=== PATIENT | male | born 1945 | race Caucasian/White ===

== ENCOUNTER 2016-08-11 14:34 | Inpatient (IN) | payer OTHER ==
[2016-08-11] MEDS ORDERED: HEMOQUE TEST 1 EACH EACH ONE (14:37)
[2016-08-11] MEDS ORDERED: SODIUM CHLORIDE 1,000 ML IV ONE (14:40)
--- NOTE | 2016-08-11 14:43 | PDOC ---
History of Present Illness - General History Source: Patient Exam Limitations: No Limitations - History of Present Illness Initial Comments: 08/11/16 18:56 Patient is a 70 year old male with unknown significant past medical history who presents to the ED via EMS with [employer] s/p witnessed seizure activity. As per EMS the patient was in [employer] as patient was ordering, he started to sway and fell hitting his head,t hen started to have the seizure like acivity. Pt also noted to have large lac onhis head. Patient presented combative and postictal to the ED. Patient was confused on presentation and fighting but was able to answer questions upon arrival. Patient denies any complaints upon arrival - but does not remember anything from earlier today - no cp, palpitations, headache, dizziness, numbness/ weakness. Patient denies any ETOH abuse, any drug use. Patient denies any history of seizures in the past. <Emely Sylvester - Last Filed: 08/11/16 18:56> <Juan Miguel Barajas - Last Filed: 08/11/16 19:33> - General Chief Complaint: Seizure Stated Complaint: SEIZURE Time Seen by Provider: 08/11/16 14:39 Past History <Emely Sylvester - Last Filed: 08/11/16 18:56> <Juan Miguel Barajas - Last Filed: 08/11/16 19:33> - Past Medical History Allergies/Adverse Reactions: Allergies Allergy/AdvReac Type Severity Reaction Status Date / Time No Known Allergies Allergy Verified 08/11/16 19:13 Review of Systems - Review of Systems Able to Perform ROS?: Yes Comments:: 08/11/16 18:57 Constitutional - no reported Fever, Chills, weakness, HEENT: no reported vision changes, sore throat Respiratory: no reported cough, sob, hemoptysis Cardiac: no reported chest pain, palpitations, light headedness, leg swelling Abd/GI: no reported abd pain, nausea, vomiting, blood per rectum, melena, diarrhea : no reported dysuria, frequency, discharge Musculskelatal - no reported back pain, joint swelling skin - +laceration to back of the scalp no reported bruising, erythema, rash neurological: no reported headache, numbness, focal weakness, tingling, ataxia, weakness hematologic: no reported anemia, easy bruising, easy bleeding <Emely Sylvester - Last Filed: 08/11/16 18:56> *Physical Exam - Vital Signs Last Vital Signs Temp Pulse Resp BP Pulse Ox 97 H 18 144/78 198 H 08/11/16 17:21 08/11/16 17:21 08/11/16 17:21 08/11/16 17:21 - Physical Exam Comments: 08/11/16 18:58 exam documented reflects after patients more alert GENERAL: The patient is awake, alert, and fully oriented, Nontoxic - in no acute distress. HEAD: Normocephalic, 6cm laceration to posterior scalp with hematoma, no stepoffs EYES: extraocular movements intact, sclera anicteric, conjunctiva clear. ENT: Normal voice, Moist mucous membranes. NECK: Normal range of motion, supple, no midline cervical tenderness BACK: No focal thoracic/lumbar tenderness LUNGS: Breath sounds equal, clear to auscultation bilaterally. No wheezes, no rhonchi, no rales. HEART: Regular rate and rhythm, normal S1 and S2 without murmur, rub or gallop. ABDOMEN: Soft, nontender, normoactive bowel sounds. No guarding, no rebound. . No CVA tenderness EXTREMITIES: Normal range of motion, no edema. No clubbing or cyanosis. No cords, erythema, or tenderness. NEUROLOGICAL: No facial assymetry, Normal speech, mofing all 4 extremities spontaneously and symmetrially PSYCH: Normal mood, normal affect. SKIN: Warm, Dry, normal turgor, <Emely Syvlester - Last Filed: 08/11/16 18:56> Procedures - Consent Consent obtained: Verbal - Laceration/Wound Repair Left Posterior Head Wound Length: 5.0 to 7.5 cm Wound Explored: clean Wound's Depth, Shape: superficial, linear, stellate Irrigated w/ Saline: Yes Anesthesia: 1% Lidocaine Amount of Anesthetic (ccs): 4 Wound Debrided: minimal Wound Repaired With: Sadi Number of Sutures: 9 Layer Closure: No <Juan Miguel Barajas - Last Filed: 08/11/16 19:33> Heart Score/ECG Review - ECG Impressions Comment:: 08/11/16 15:36 Twelve-lead EKG was performed and reviewed by me. There is normal sinus rhythm with a rate of 127 Right bundle-branch block Q waves in lead 3 T wave inversion in the anterior leads <Juan Miguel Barajas - Last Filed: 08/11/16 19:33> ED Treatment Course - LABORATORY CBC & Chemistry Diagram: 08/11/16 14:00 08/11/16 14:00 - ADDITIONAL ORDERS Additional order review: Laboratory Results 08/11/16 08/11/16 08/11/16 14:48 14:48 14:39 INR Sodium Potassium Chloride Carbon Dioxide Anion Gap BUN Creatinine Creat Clearance w eGFR POC Glucometer 98.08865 Random Glucose Calcium Total Bilirubin AST ALT Alkaline Phosphatase Creatine Kinase Creatine Kinase Index CK-MB (CK-2) CK-MB (CK-2) Rel Index Troponin I Total Protein Albumin TSH Alcohol, Quantitative < 5.0 Acetone, Qual Negative 08/11/16 08/11/16 08/11/16 14:00 14:00 14:00 INR 1.01 Sodium Potassium Chloride Carbon Dioxide Anion Gap BUN Creatinine Creat Clearance w eGFR POC Glucometer Random Glucose Calcium Total Bilirubin AST ALT Alkaline Phosphatase Creatine Kinase 541 H Creatine Kinase Index 2.1 CK-MB (CK-2) 11.489 H CK-MB (CK-2) Rel Index Cancelled Troponin I < 0.02 Total Protein Albumin TSH 2.05 Alcohol, Quantitative Acetone, Qual 08/11/16 14:00 INR Sodium 140 Potassium 4.0 Chloride 99 Carbon Dioxide 21 Anion Gap 20 H BUN 24 H Creatinine 1.5 H Creat Clearance w eGFR 46.00 POC Glucometer Random Glucose 99 Calcium 8.9 Total Bilirubin 0.8 AST 27 ALT 21 Alkaline Phosphatase 95 Creatine Kinase Creatine Kinase Index CK-MB (CK-2) CK-MB (CK-2) Rel Index Troponin I Total Protein 7.7 Albumin 4.4 TSH Alcohol, Quantitative Acetone, Qual 08/11/16 08/11/16 14:39 14:00 RBC 5.58 MCV 90.8 MCHC 32.5 RDW 14.1 MPV 7.7 Neutrophils % 61.7 Lymphocytes % 17.5 Monocytes % 14.7 H Eosinophils % 4.3 Basophils % 1.8 POC Glucometer 98.44362 - Medications Given in the ED: ED Medications Discontinued Medications Generic Name Dose Route Start Last Admin Trade Name Freq PRN Reason Stop Dose Admin Diphtheria/Tetanus/Acell Pertussis 0.5 ml 08/11/16 16:13 08/11/16 16:41 Adacel Adolescent/Adult - IM 08/11/16 16:14 0.5 ml .ONCE ONE Administration Sodium Chloride 1,000 mls @ 1,000 mls/hr 08/11/16 14:40 08/11/16 15:24 Normal Saline - IV 08/11/16 15:39 1,000 mls/hr .Q1H ONE Administration <Emely Sylvester - Last Filed: 08/11/16 18:56> - LABORATORY CBC & Chemistry Diagram: 08/11/16 14:00 08/11/16 14:00 - RADIOLOGY Radiology Studies Ordered: Category Date Time Status CERVICAL SPINE CT W/O CONTR [CT] Stat CT Scan 08/11/16 14:[address] WITHOUT CONTRAST [CT] Stat CT Scan 08/11/16 14:40 Ordered CHEST X-RAY PORTABLE* [RAD] Stat Radiology 08/11/16 14:40 Ordered <Juan Miguel Barajas - Last Filed: 08/11/16 19:33> Medical Decision Making - Medical Decision Making 08/11/16 14:43 08/11/16 14:44 70y M [place] pmhx presents with witnessed seizure activity lasting a few minutes while ordering at [facility] [place] - pt was combative/post ictal whien EMS arrived. upon arrival pt was still cmobative and fighting/pulling but pt answering qeustsions and is relatively coherent, although needs repetitive guidance. ?etoh withdrawal ?new seziures will ck ct head to r/o ICH/SAH will ck labs to r/o metabolic dernagements will ua, cxr to r/o infection pt placed on cardiac tmonitor pt mntoed tachy to 127 - likely due to the pts recent seziure - will give fluids will reassess A portion of this note was documented by scribe services under my direction. I have reviewed the details of the note, within reason, and agree with the documentation with the following case summary and management plan written by me 08/11/16 14:52 Per PD, the [facility] [place] network architect manager states the pt was ordering, then started to sway and fell, then seizure like activity began pt has large laceration on posterior scalp - currently ao x 3 more awake, cooperative, joking around ?syncope and seizure secondary to head trauma? 08/11/16 16:39 case d/w dr. dejesus agreed with admission for further management observation in telemetry Case discussed in detail with admitting physician including history, physical exam and ancillary studies. Admitting physician has assumed care for the patient, will follow all pending diagnostics and will complete the evaluation and treatment. 08/11/16 19:[address] shows no acute disease, howver there is a enlargement of R submandibular gland relative to left - will have pt fu with this as outpatient. i discussed with patient to let him know. CT results given to patient to fu. <Juan Miguel Barajas - Last Filed: 08/11/16 19:33> *DC/Admit/Observation/Transfer - Attestations Scribe Attestion: 08/11/16 18:57 Documentation prepared by SIDDHARTHA Wiley, acting as medical radiation therapist for Juan Miguel Barajas MD. <Emely Sylvester - Last Filed: 08/11/16 18:56> - Discharge Dispostion Admit: Yes <Juan Miguel Barajas - Last Filed: 08/11/16 19:33> Diagnosis at time of Disposition: Seizure Syncope Qualifiers: Syncope type: unspecified Qualified Code(s): R55 - Syncope and collapse
[2016-08-11 14:54] VITALS: BMI 29.0
[2016-08-11 15:10] LABS: BASOPHIL 1.8 % (0-2.0); EOSINOPHIL 4.3 % (0-4.5); MCH 29.5 pg (25.7-33.7); MCHC 32.5 g/dl (32.0-35.9); MEAN CELL VOLUME 90.8 fl (80-96); MEAN PLT VOLUME 7.7 fl (7.5-11.1); NEUTROPHILS 61.7 % (42.8-82.8); PLATELET COUNT 384 K/MM3 (134-434); RDW 14.1 % (11.9-15.9); WHITE BLOOD COUNT 11.4 K/mm3 (4.0-10.0)
[2016-08-11 15:33] LABS: INR 1.01 (0.82-1.09); PROTHROMBIN TIME (PATIENT) 11.1 SEC (9.98-11.88)
[2016-08-11 15:41] LABS: TROPONIN I < 0.02 ng/ml (0.00-0.05)
[2016-08-11 15:44] LABS: ALBUMIN 4.4 g/dl (3.4-5.0); CALCIUM 8.9 mg/dL (8.5-10.1); CREATININE 1.5 mg/dL (0.7-1.3)
[2016-08-11 15:45] LABS: BILIRUBIN,TOTAL 0.8 mg/dL (0.2-1.0); TOT PROT 7.7 g/dl (6.4-8.2)
[2016-08-11 15:51] LABS: THYROID STIMULATING HORMONE 2.05 uIU/ml (0.358-3.74)
[2016-08-11] MEDS ORDERED: DIPHTH,PERTUSS(ACELL),TET VAC 0.5 ML VIAL IM ONE (16:13)
[2016-08-11] MEDS ORDERED: BACITRACIN 0.9 GM PACKET ONE (16:36)
[2016-08-11] MEDS ORDERED: SODIUM CHLORIDE 1,000 ML IV SCH (17:30)
--- NOTE | 2016-08-11 17:41 | HP ---
CHIEF COMPLAINT: Loss of consciousness. PCP: Dr Kevin Pace in [facility] HISTORY OF PRESENT ILLNESS: This is a 70 year old male with no PMH who was brought via EMS s/p seizure and LOC. He states that was in [employer] trying to order when he suddenly lost consciousness, fell on the ground, hit his head and had seizure. He woke up in the hospital confused and oriented only to person. The pt denies feeling different before the incident. He didn't have aura, urinate, defecate or bit his tongue. The pt reports that he had one episode of LOC 4 years ago when he was admitted to [facility] but no diagnosis was made. Last time he was seen by his PCP was last year and he states that he doesn't have any PMH. Doesn't take any prescription medications. ER course was notable for: (1)CT head (2)CXR (3)Utox, IVF PAST MEDICAL HISTORY: None PAST SURGICAL HISTORY: None Social History: Smoking:Denies, never smoker Alcohol:Denies Drugs: Denies Family History: Mother and Father bc of natural causes. Allergies No Known Allergies Allergy (Verified 08/11/16 14:44) HOME MEDICATIONS: OTC vitamins REVIEW OF SYSTEMS CONSTITUTIONAL: Absent: fever, chills, malaise, loss of appetite, weight change HEENT: Absent: rhinorrhea, nasal congestion, throat pain, throat swelling, difficulty swallowing, ear pain, eye pain, visual changes CARDIOVASCULAR: Absent: chest pain, palpitations, lightheadedness, peripheral edema RESPIRATORY: Absent: cough, shortness of breath, dyspnea with exertion, orthopnea, wheezing, GASTROINTESTINAL: Absent: abdominal pain, nausea, vomiting, diarrhea, constipation, melena, GENITOURINARY: Absent: dysuria, frequency, urgency, hesitancy, hematuria, flank pain, MUSCULOSKELETAL: Absent: myalgia, arthralgia, joint swelling, back pain, neck pain SKIN: Absent: rash, itching, pallor ENDOCRINE: Absent: unexplained weight gain, unexplained weight loss, NEUROLOGIC: seizure, LOC, dizziness Absent: headache, focal weakness or paresthesias, unsteady gait, mental status changes, bladder or bowel incontinence PSYCHIATRIC: Confused Absent: anxiety, depression PHYSICAL EXAMINATION Vital Signs - 24 hr 01/26/17 01/26/17 01/26/17 14:36 15:24 15:34 Pulse Rate 127 H Pulse Rate [ 103 H Apical] Respiratory 18 20 Rate Blood Pressure 141/109 Blood Pressure 125/74 [Right Arm] O2 Sat by Pulse 100 93 L 97 Oximetry (%) 08/11/16 08/11/16 17:11 17:21 Pulse Rate Pulse Rate [ 100 H 97 H Apical] Respiratory 20 18 Rate Blood Pressure Blood Pressure 144/78 144/78 [Right Arm] O2 Sat by Pulse 100 198 H Oximetry (%) GENERAL: Awake, AAOx1, in no acute distress. HEAD:5 cm wound on posterior scalp, 8 stitches applied. EYES: Pupils equal, round and reactive to light, extraocular movements intact, sclera anicteric, conjunctiva clear. No lid lag. EARS, NOSE, THROAT: Ears normal, nares patent, oropharynx clear without exudates. Moist mucous membranes. NECK: Normal range of motion, supple without lymphadenopathy, no JVD, or masses. LUNGS: Breath sounds equal, clear to auscultation bilaterally. No wheezes, and no crackles. No accessory muscle use. HEART: Regular rate and rhythm, normal S1 and S2 without murmur, rub or gallop. ABDOMEN: Soft, nontender, not distended, normoactive bowel sounds, no guarding, no rebound, naval hernia. No hepatomegaly or splenomegaly. MUSCULOSKELETAL: Normal range of motion at all joints. No bony deformities or tenderness. No CVA tenderness. UPPER EXTREMITIES: 2+ pulses, warm, well-perfused. No cyanosis. No clubbing. No peripheral edema. LOWER EXTREMITIES: 2+ pulses, warm, well-perfused. No calf tenderness. No peripheral edema. NEUROLOGICAL: Cranial nerves II-XII intact. Normal speech. Gait not observed, the pt felt dizziness when in sitting position, Babinski neg. B/L, DTR in LE and UE intact.. PSYCHIATRIC: Cooperative. Good eye contact. Appropriate mood and affect. SKIN: Warm, dry, normal turgor, no rashes. Laboratory Results - last 24 hr 08/11/16 08/11/16 08/11/16 14:00 14:00 14:00 WBC 11.4 H RBC 5.58 Hgb 16.5 Hct 50.7 H MCV 90.8 MCHC 32.5 RDW 14.1 Plt Count 384 MPV 7.7 Neutrophils % 61.7 Lymphocytes % 17.5 Monocytes % 14.7 H Eosinophils % 4.3 Basophils % 1.8 INR 1.01 Sodium 140 Potassium 4.0 Chloride 99 Carbon Dioxide 21 Anion Gap 20 H BUN 24 H Creatinine 1.5 H Creat Clearance w eGFR 46.00 POC Glucometer Random Glucose 99 Calcium 8.9 Total Bilirubin 0.8 AST 27 ALT 21 Alkaline Phosphatase 95 Creatine Kinase Creatine Kinase Index CK-MB (CK-2) CK-MB (CK-2) Rel Index Troponin I Total Protein 7.7 Albumin 4.4 TSH Acetone, Qual 08/11/16 08/11/16 08/11/16 14:00 14:00 14:39 WBC RBC Hgb Hct MCV MCHC RDW Plt Count MPV Neutrophils % Lymphocytes % Monocytes % Eosinophils % Basophils % INR Sodium Potassium Chloride Carbon Dioxide Anion Gap BUN Creatinine Creat Clearance w eGFR POC Glucometer 98.28728 Random Glucose Calcium Total Bilirubin AST ALT Alkaline Phosphatase Creatine Kinase 541 H Creatine Kinase Index 2.1 CK-MB (CK-2) 11.489 H CK-MB (CK-2) Rel Index Cancelled Troponin I < 0.02 Total Protein Albumin TSH 2.05 Acetone, Qual 08/11/16 14:48 WBC RBC Hgb Hct MCV MCHC RDW Plt Count MPV Neutrophils % Lymphocytes % Monocytes % Eosinophils % Basophils % INR Sodium Potassium Chloride Carbon Dioxide Anion Gap BUN Creatinine Creat Clearance w eGFR POC Glucometer Random Glucose Calcium Total Bilirubin AST ALT Alkaline Phosphatase Creatine Kinase Creatine Kinase Index CK-MB (CK-2) CK-MB (CK-2) Rel Index Troponin I Total Protein Albumin TSH Acetone, Qual Negative CXR; no infiltrates, no acute pathology CT head:no acute pathology, fracture, enlarged right submandibular gland C-Spine CT:no acute pathology ASSESSMENT/PLAN: This is a 70 year old male with no PMH who was brought via EMS s/p seizure and LOC. He states that was in [employer] trying to order when he suddenly lost consciousness, fell on the ground, hit his head and had seizure. He woke up in the hospital confused and oriented only to person. The pt denies feeling different before the incident. He didn't have aura, urinate, defecate or bit his tongue. He was placed on observation in telemetry s/p seizure. S/p seizure and fall: -possibly due to hypoglycemia, (Random Glu 99) -CT head-no acute pathology, -sutures applied (8) -cardiac monitoring in telemetry -set of troponins x2 -Utox pending -Alcohol level neg -acetone neg -UA pending -NS at rate 83 ml/hr -EEG ordered -too late for prolactin TERRENCE; -possibly due to dehydration, prerenal -Cr 1.5, BUN 24 -avoid nephrotoxic substances -continue NS DVT PPX; -SCDs F/E/N: NS/No changes/Regular Problem List - Problem (1) Seizure Code(s): R56.9 - UNSPECIFIED CONVULSIONS (2) Syncope Code(s): R55 - SYNCOPE AND COLLAPSE Qualifiers: Syncope type: unspecified Qualified Code(s): R55 - Syncope and collapse Visit type - Emergency Visit Emergency Visit: Yes ED Registration Date: 08/11/16 Care time: The patient presented to the Emergency Department on the above date and was hospitalized for further evaluation of their emergent condition. - New Patient This patient is new to me today: Yes Date on this admission: 08/11/16 - Critical Care Critical Care patient: No
--- NOTE | 2016-08-11 18:05 | PN ---
Teaching Attending Note Name of Resident: Wandy Blanca ATTENDING PHYSICIAN STATEMENT I saw and evaluated the patient. I reviewed the resident's note and discussed the case with the resident. I agree with the resident's findings and plan as documented. SUBJECTIVE: This is a 70-year-old man with a history of syncope who was brought in to the ER by EMS after losing consciousness at [facility]. He was ordering, fell to the floor, hit his head, and had seizure activity. He woke up in the ER confused. He was not incontinent and did not bite his tongue. OBJECTIVE: Vital Signs Period Temp Pulse Resp BP Sys/Carbajal Pulse Ox Last 24 Hr 97-127 18-20 125-144/74-109 93-198 HEART: S1 S2, RRR LUNGS: Clear ABDOMEN: Soft, non-tender, non-distended, normal BS EXTREMITIES: No edema NEUROLOGICAL: Alert, oriented, non-focal ASSESSMENT AND PLAN: 1. Seizure - Monitor on telemetry - EEG 2. Possible acute kidney injury, possible stage 3 CKD - IV fluid - Monitor BUN, creatinine 3. Scalp laceration - Sadi placed in ER
[2016-08-11 22:48] LABS: URINE APPEARANCE CLEAR; URINE BILIRUBIN NEGATIVE (NEGATIVE); URINE BLOOD NEGATIVE (NEGATIVE); URINE COLOR YELLOW; URINE GLUCOSE (UA) NEGATIVE (NEGATIVE); URINE KETONE TRACE (NEGATIVE); URINE LEUK ESTERASE NEGATIVE (NEGATIVE); URINE NITRITE NEGATIVE (NEGATIVE); URINE PROTEIN NEGATIVE (NEGATIVE); URINE UROBILINOGEN NEGATIVE E.U./dl (0.2-1.0)
[2016-08-11 23:10] LABS: URINE MARIJUANA THC NEGATIVE ng/ml (CUTOFF=50)
--- NOTE | 2016-08-11 23:35 | EKG ---
Test Reason : Blood Pressure : / mmHG Vent. Rate : 127 BPM Atrial Rate : 127 BPM P-R Int : 130 ms QRS Dur : 136 ms QT Int : 362 ms P-R-T Axes : 029 -14 043 degrees QTc Int : 526 ms POOR DATA QUALITY, INTERPRETATION MAY BE ADVERSELY AFFECTED SINUS TACHYCARDIA RIGHT BUNDLE BRANCH BLOCK INFERIOR INFARCT , AGE UNDETERMINED ABNORMAL ECG NO PREVIOUS ECGS AVAILABLE Confirmed by VAHID POE MD ([id number]) on 08/11/2016 11:34:32 PM Referred By: Confirmed By:VAHID POE MD
[2016-08-12 08:12] LABS: MCH 30.2 pg (25.7-33.7); MCHC 33.5 g/dl (32.0-35.9); MEAN CELL VOLUME 90.3 fl (80-96); MEAN PLT VOLUME 7.2 fl (7.5-11.1); PLATELET COUNT 226 K/MM3 (134-434); RDW 13.5 % (11.9-15.9); WHITE BLOOD COUNT 7.7 K/mm3 (4.0-10.0)
[2016-08-12 09:00] LABS: CALCIUM 7.4 mg/dL (8.5-10.1); CREATININE 1.1 mg/dL (0.7-1.3)
[2016-08-12 09:06] LABS: TROPONIN I 0.05 ng/ml (0.00-0.05)
--- NOTE | 2016-08-12 11:31 | EKG ---
Test Reason : Blood Pressure : / mmHG Vent. Rate : 088 BPM Atrial Rate : 088 BPM P-R Int : 182 ms QRS Dur : 130 ms QT Int : 390 ms P-R-T Axes : 048 -09 030 degrees QTc Int : 471 ms NORMAL SINUS RHYTHM RIGHT BUNDLE BRANCH BLOCK INFERIOR INFARCT (CITED ON OR BEFORE 11-AUG-2016) ABNORMAL ECG WHEN COMPARED WITH ECG OF 11-AUG-2016 14:37, NO SIGNIFICANT CHANGE WAS FOUND Confirmed by DUDLEY MELÉNDEZ MD ([id number]) on 08/12/2016 11:31:33 AM Referred By: CAMELIA SCOTT Confirmed By:DUDLEY MELÉNDEZ MD
--- NOTE | 2016-08-12 15:07 | PN ---
Physical Exam: SUBJECTIVE: Patient seen and examined. The pt is complaining of feeling dizzy and lightheaded. He denies headache, vision problems, paresthesias, numbness, LOC in the hospital, N/V, diarrhea, fever, chills, chest pain and palpitations. He states that he doesn't remember what happened and if he had seizures. OBJECTIVE: Vital Signs Period Temp Pulse Resp BP Sys/Carbajal Pulse Ox Last 24 Hr 97.6 F-98.4 F 76-98 18-20 117-148/68-111 96-198 GENERAL: The patient is awake, alert, and fully oriented, in no acute distress. HEAD: 5 cm laceration in the back of the scalp, not bleeding, sutures applied EYES: PERRL, sclera anicteric, conjunctiva clear. No ptosis. ENT: Ears normal, nares patent, oropharynx clear without exudates, moist mucous membranes. NECK: Trachea midline, full range of motion, supple. LUNGS: Breath sounds equal, clear to auscultation bilaterally, no wheezes, no crackles, no accessory muscle use. HEART: Regular rate and rhythm, S1, S2 without murmur, rub or gallop. ABDOMEN: Soft, nontender, nondistended, normoactive bowel sounds, no guarding, no rebound, no hepatosplenomegaly, no masses. EXTREMITIES: warm, well-perfused, no edema. NEUROLOGICAL: Cranial nerves II through XII grossly intact. Normal speech, gait not observed, no weakness, sensation intact, Babinski negative. PSYCH: Normal mood, normal affect. SKIN: Warm, dry, normal turgor, no rashes or lesions noted Laboratory Results - last 24 hr 08/11/16 08/11/16 08/11/16 20:32 21:00 21:00 WBC RBC Hgb Hct MCV MCHC RDW Plt Count MPV Sodium Potassium Chloride Carbon Dioxide Anion Gap BUN Creatinine Random Glucose Calcium Ammonia 21.93 Troponin I 0.07 H D Urine Color Yellow Urine Appearance Clear Urine pH 5.0 Ur Specific [place] 1.020 Urine Protein Negative Urine Glucose (UA) Negative Urine Ketones Trace H Urine Blood Negative Urine Nitrite Negative Urine Bilirubin Negative Urine Urobilinogen Negative Ur Leukocyte Esterase Negative Opiates Screen Methadone Screen Barbiturate Screen Phencyclidine Screen Ur Amphetamines Screen MDMA (Ecstasy) Screen Benzodiazepines Screen Cocaine Screen U Marijuana (THC) Screen 08/11/16 08/12/16 08/12/16 22:20 06:50 06:50 WBC 7.7 D RBC 4.61 Hgb 13.9 D Hct 41.6 D MCV 90.3 MCHC 33.5 RDW 13.5 Plt Count 226 D MPV 7.2 L Sodium 143 Potassium 4.2 Chloride 110 H D Carbon Dioxide 22 Anion Gap 11 BUN 17 D Creatinine 1.1 D Random Glucose 86 Calcium 7.4 L Ammonia Troponin I 0.05 Urine Color Urine Appearance Urine pH Ur Specific [place] Urine Protein Urine Glucose (UA) Urine Ketones Urine Blood Urine Nitrite Urine Bilirubin Urine Urobilinogen Ur Leukocyte Esterase Opiates Screen Negative Methadone Screen Negative Barbiturate Screen Negative Phencyclidine Screen Negative Ur Amphetamines Screen Negative MDMA (Ecstasy) Screen Negative Benzodiazepines Screen Negative Cocaine Screen Negative U Marijuana (THC) Screen Negative 08/12/16 06:50 WBC RBC Hgb Hct MCV MCHC RDW Plt Count MPV Sodium Potassium Chloride Carbon Dioxide Anion Gap BUN Creatinine Random Glucose Calcium Ammonia Troponin I Cancelled Urine Color Urine Appearance Urine pH Ur Specific [place] Urine Protein Urine Glucose (UA) Urine Ketones Urine Blood Urine Nitrite Urine Bilirubin Urine Urobilinogen Ur Leukocyte Esterase Opiates Screen Methadone Screen Barbiturate Screen Phencyclidine Screen Ur Amphetamines Screen MDMA (Ecstasy) Screen Benzodiazepines Screen Cocaine Screen U Marijuana (THC) Screen Active Medications Generic Name Dose Route Start Last Admin Trade Name Freq PRN Reason Stop Dose Admin Sodium Chloride 1,000 mls @ 83 mls/hr 08/11/16 17:30 08/11/16 17:53 Normal Saline - IV 83 mls/hr ASDIR MAURICE Administration CXR; no infiltrates, no acute pathology CT head:no acute pathology, fracture, enlarged right submandibular gland C-Spine CT:no acute pathology EKG: NSR, no st changes ASSESSMENT/PLAN: This is a 70 year old male with no PMH who was brought via EMS s/p seizure and LOC. He states that was in [employer] trying to order when he suddenly lost consciousness, fell on the ground, hit his head and had seizure. He woke up in the hospital confused and oriented only to person. The pt denies feeling different before the incident. He didn't have aura, urinate, defecate or bit his tongue. He was placed on observation in telemetry s/p seizure. S/p LOC and fall: -possibly due to orthostatic hypotension, r/o ACS -CT head-no acute pathology -cardiac monitoring in telemetry, reviewed, no events overnight -set of troponins x3, second one 0.05 -ECHO done today, waiting for report -Utox negative -Alcohol level neg -acetone neg -UA nl -NS at rate 83 ml/hr -EEG done -too late for prolactin TERRENCE; -possibly due to dehydration, prerenal -Cr 1.5, BUN 24 -avoid nephrotoxic substances -continue NS Head laceration: -sutures were applied, -will f/u as outpatient in a week DVT PPX; -SCDs F/E/N: NS/No changes/Regular Problem List - Problems (1) Syncope Code(s): R55 - SYNCOPE AND COLLAPSE Qualifiers: Syncope type: unspecified Qualified Code(s): R55 - Syncope and collapse Visit type - Emergency Visit Emergency Visit: Yes ED Registration Date: 08/11/16 Care time: The patient presented to the Emergency Department on the above date and was hospitalized for further evaluation of their emergent condition. - New Patient This patient is new to me today: No - Critical Care Critical Care patient: No - Discharge Referral Referred to [facility] No
--- NOTE | 2016-08-12 17:08 | PN ---
Teaching Attending Note Name of Resident: Wandy Blanca ATTENDING PHYSICIAN STATEMENT I saw and evaluated the patient. I reviewed the resident's note and discussed the case with the resident. I agree with the resident's findings and plan as documented. SUBJECTIVE: no fever or chills , light headed when stands up . no weakness. no CP . no SOB . OBJECTIVE: NAD , dry MM CV: RRR, no MRG Lunsg : CATB ext : no edema Neuro : no facial droop, EOMI, round equal pupils , eractive to light , strength 5/5 in upper and lower ext , no pronator drift. reflexes 1+ knee jerk and biceps Neg Romberg sign ASSESSMENT AND PLAN: 70 y/o man with no significant P<H who presented with syncopal episode. 1- Syncope: likely orthostatic hypotension lee with evidence of hypovolemia ( TERRENCE , light headedness, dry MM ) . orthostatic VS this afternoon after fluids did not show orthostatic drop( might not be accurate ) although he had some confusion after the episode , seizure is unlikely . - EEG pending read - cont IVF - echo reviewed. - tele : no events - trop noted, unlikely any cardiac event 2- TERRENCE : improved with hydration , continue 3- dispo: possible dc tomorrow
[2016-08-12] MEDS: SODIUM CHLORIDE 1,000 ML IV SCH ×2 (17:30→22:33)
[2016-08-13 08:27] LABS: CALCIUM 7.8 mg/dL (8.5-10.1)
[2016-08-13 08:30] LABS: CREATININE 1.2 mg/dL (0.7-1.3)
[2016-08-13 09:39] VITALS: BP 150/82; PULSE 81; TEMP 98
--- NOTE | 2016-08-13 17:09 | DS ---
Physical Examination Vital Signs: Vital Signs Temperature 98.0 F 08/13/16 09:38 Pulse Rate 81 08/13/16 09:38 Respiratory Rate 19 08/13/16 09:38 Blood Pressure 150/82 08/13/16 09:38 O2 Sat by Pulse Oximetry (%) 98 08/13/16 09:00 Findings/Remarks: no HAM , light headedness or cp . PE : NAD , dry MM CV: RRR, no MRG Lunsg : CATB ext : no edema Neuro : no facial droop, EOMI, round equal pupils , eractive to light , strength 5/5 in upper and lower ext , no pronator drift. reflexes 1+ knee jerk and biceps Neg Romberg sign gait, NL and steady Labs: CBC, BMP 08/12/16 06:50 08/13/16 06:00 Discharge Summary Reason For Visit: SEIZURES Hospital Course: dc diagnoses : 1- syncope 2- TERRENCE hospital course 70 y/o man with no significant PMH who presented with syncopal episode. he was found to have TERRENCE at presntation with NL neuro exam and no other metabolic cause of his sx. his syncope was thought to be due to orthostatic hypotension as he had evidence of kidney injury. he was given IVF , renal function normalized and his light headedness has resolved. his orthostatic VS were done after he received IVF and they were Nl . EEG was done but not read. any way suspicion for seizure was low in DDx. he is to follow with [facility]p to follow on the results His cardiac w/u didnot show any SC . today his gait was NL , and neuro exam NL , he is to be dc hoem . dispo : home condition improved time spent 40 min Condition: Improved - Instructions Diet, Activity, Other Instructions: - Please follow with your Primary care doctor in 1 week - the results of the EEG ( test for seizure is still pending ) , Dr. Brown can follow on that . - you can call our neurologist office, to get an appointment , for EEG results if Dr. Brown is not able to get them - Keep hydrated Referrals: Sanjeev Brown [Primary Care Provider] - 1 Week Disposition: HOME This patient is new to me today: No Emergency Visit: Yes ED Registration Date: 08/11/16 Care time: The patient presented to the Emergency Department on the above date and was hospitalized for further evaluation of their emergent condition. Critical Care patient: No - Discharge Referral Referred to [facility] No
== END 2016-08-13 11:05 | disposition home or self-care (01) | DRG 312 ==
LOC: JER 14:34 → JERBED 17:12 → J4S 19:30
PROVIDERS: ADMIT Internal Medicine; ATTEND Internal Medicine
PROC: 0HQ0XZZ Repair Scalp Skin, External Approach (ICD-10-PCS; principal; 2016-08-11)
PROC: 4A00X4Z Measurement of Central Nervous Electrical Activity, External Approach (ICD-10-PCS; 2016-08-12)
DX: I95.1 Orthostatic hypotension (principal); N17.9 Acute kidney failure, unspecified; S01.01XA Laceration without foreign body of scalp, initial encounter; W18.39XA Other fall on same level, initial encounter; Y92.511 Restaurant or cafe as the place of occurrence of the external cause; R56.9 Unspecified convulsions
CPT/HCPCS: 36415; 70450-TC; 71010-TC; 72125-TC; 80048; 80053; 80307; 81003; 82009; 82140; 82550; 82553; 84443; 84484; 85025; 85027; 85610; 93005; 93010; 93306-TC; 95816; 99285-25

== ENCOUNTER 2016-08-18 13:00 | Emergency (ER) | payer OTHER ==
[2016-08-18 13:31] VITALS: BP 164/77; PULSE 80; TEMP 98.7; BMI 25.3
--- NOTE | 2016-08-18 13:52 | PDOC ---
Suture Removal/Wound Check HPI - History of Present Illness Chief Complaint: Suture/Staple Removal(Here) Stated Complaint: STAPLE REMOVAL Time Seen by Provider: 08/18/16 13:36 History Source: Yes: Patient Exam Limitations: Yes: No Limitations Treated at: [facility] Date of Last ED visit: 08/11/16 - Previous ED Treatment Type of procedure performed on last visit: Yes: Laceration Repair (scalp lac repair with irvin) Past History - Past Medical History Allergies/Adverse Reactions: Allergies No Known Allergies Allergy (Verified 08/18/16 13:28) General: Yes: seizure Surgical History: Yes: No Surgical History Psych History: Yes: No Pertinent Psych Hx. - Family History Significant Family History: Yes: no pertinent family hx - Immunization History Tetanus Status: Less than 5 years - Social History Smoking Status: Former smoker Suture Removal/Wound Check PE - Physical Exam Laceration/Wound Check Symptoms: reports: None Current Severity Level: None Maximum Severity Level: None Pain Localization: None Comments: 08/18/16 13:50 scalp posterior *Review of Systems - Review of Systems Able to Perform ROS?: Yes Constitutional: No: Symptoms Reported HEENTM: No: Symptoms Reported Respiratory: No: Symptoms reported Cardiac (ROS): No: Symptoms Reported ABD/GI: No: Symptoms Reported : No: Symptoms Reported Musculoskeletal: No: Symptoms Reported Integumentary: No: Symptoms Reported Neurological: No: Symptoms reported Procedures - Additional Procedures Progress: 08/18/16 13:50 9 irvin removed from scalp, well healed intact no redness Medical Decision Making - Medical Decision Making 08/18/16 13:51 cc: staple removal from posterior scalp wound is clean, dry intact pt has no complaints *DC/Admit/Observation/Transfer Diagnosis at time of Disposition: Removal of staple - Discharge Dispostion Disposition: HOME Condition at time of disposition: Good - Patient Instructions Additional Instructions: you may shower and wash hair as routine follow with your doctor as needed
== END 2016-08-18 14:10 | disposition home or self-care (01) ==
LOC: JERFT 13:00
DX: Z48.02 Encounter for removal of sutures (principal)
CPT/HCPCS: 99281-25

== ENCOUNTER 2023-03-22 10:49 | Inpatient (IN) | payer OTHER ==
[2023-03-22 12:20] LABS: EPI CELLS >36 /uL (0-25.1); HYALINE CASTS 23 /uL (0-3.1); PH,URINE 5.5 (5.0-8.0); URINE APPEARANCE TURBID; URINE BILIRUBIN NEGATIVE (NEGATIVE); URINE COLOR DK YELLOW; URINE GLUCOSE (UA) NEGATIVE (NEGATIVE); URINE KETONE 1+ (NEGATIVE); URINE LEUK ESTERASE 1+ (NEGATIVE); URINE NITRITE NEGATIVE (NEGATIVE); URINE PROTEIN 2+ (NEGATIVE); URINE WBC 172 /uL (0-25.8)
[2023-03-22] MEDS ORDERED: SODIUM CHLORIDE 1,000 ML IV STA ×2 (12:22→14:05)
[2023-03-22 12:46] LABS: URINE BACTERIA 30 /uL (0-1359); URINE RBC 90 /uL (0-23.9)
[2023-03-22 13:26] LABS: BASO % 0.2 % (0-2.0); HEMATOCRIT 48.4 % (35.4-49); HEMOGLOBIN 16.1 GM/dL (11.7-16.9); LYMPH % 1.6 % (8-40); MCH 30.3 pg (25.7-33.7); MCHC 33.3 g/dl (32.0-35.9); MEAN PLT VOLUME 7.7 fl (7.5-11.1); MONO % 13.4 % (3.8-10.2); NEUT % 84.8 % (42.8-82.8); PLATELET COUNT 206 10^3/uL (134-434); RBC 5.32 M/mm3 (4.00-5.60); RDW 15.1 % (11.9-15.9); WHITE BLOOD COUNT 9.6 K/mm3 (4.0-10.0)
[2023-03-22 13:32] LABS: INR 1.13 (0.83-1.09); PROTHROMBIN TIME (PATIENT) 13.1 SEC (9.7-13.0)
[2023-03-22 13:44] LABS: POTASSIUM 4.1 mmol/L (3.5-5.1)
[2023-03-22 13:47] LABS: ALBUMIN 3.7 g/dl (3.4-5.0); BLOOD UREA NITROGEN 25.5 mg/dL (7-18); CALCIUM 8.9 mg/dL (8.5-10.1); MAGNESIUM 2.4 mg/dL (1.8-2.4)
[2023-03-22 13:50] LABS: CREATININE 1.7 mg/dL (0.55-1.3)
[2023-03-22 13:52] LABS: BILIRUBIN,TOTAL 1.9 mg/dL (0.2-1); TOT PROT 7.2 g/dl (6.4-8.2)
[2023-03-22] MEDS ORDERED: CEFTRIAXONE 1,000 MG in DEXTROSE 5%-WATER - 50 ML IVPB ONE (14:06)
[2023-03-22] MEDS ORDERED: CEFTRIAXONE 1 GM/50 ML BAG ONE (14:15)
[2023-03-22] MEDS ORDERED: LACTATED RINGERS SOLUTION 1,000 ML/1,000 ML INFUS.BAG IV SCH (15:15)
[2023-03-22 16:25] LABS: PHOSPHOROUS 3.2 mg/dL (2.5-4.9)
[2023-03-22] MEDS: SODIUM CHLORIDE 1,000 ML IV SCH ×2 (17:36→22:11)
[2023-03-22 21:23] VITALS: BMI 21.6
[2023-03-22] MEDS: levETIRAcetam 500 MG TABLET (FP) PO SCH (21:49)
[2023-03-22] MEDS: HEPARIN NA (PORCINE) 5,000 UNITS/ML 1ML VIAL SQ SCH (21:49)
[2023-03-23] MEDS: SODIUM CHLORIDE 1,000 ML IV SCH (06:39)
[2023-03-23 08:01] LABS: BASO % 0.8 % (0-2.0); EOS % 0.1 % (0-4.5); HEMATOCRIT 43.1 % (35.4-49); HEMOGLOBIN 14.2 GM/dL (11.7-16.9); LYMPH % 5.4 % (8-40); MCHC 32.9 g/dl (32.0-35.9); MEAN CELL VOLUME 91.2 fl (80-96); MEAN PLT VOLUME 7.6 fl (7.5-11.1); MONO % 10.9 % (3.8-10.2); NEUT % 82.8 % (42.8-82.8); PLATELET COUNT 155 10^3/uL (134-434); RBC 4.73 M/mm3 (4.00-5.60); WHITE BLOOD COUNT 6.8 K/mm3 (4.0-10.0)
[2023-03-23 08:07] LABS: BLOOD UREA NITROGEN 20.2 mg/dL (7-18); MAGNESIUM 2.1 mg/dL (1.8-2.4)
[2023-03-23 08:10] LABS: CREATININE 1.2 mg/dL (0.55-1.3); PHOSPHOROUS 2.6 mg/dL (2.5-4.9)
[2023-03-23 08:12] LABS: BILIRUBIN,TOTAL 0.9 mg/dL (0.2-1); TOT PROT 5.6 g/dl (6.4-8.2)
[2023-03-23 08:26] LABS: ALBUMIN 2.8 g/dl (3.4-5.0); CALCIUM 7.2 mg/dL (8.5-10.1)
[2023-03-23] MEDS: levETIRAcetam 500 MG TABLET (FP) PO SCH (09:45)
[2023-03-23] MEDS: HEPARIN NA (PORCINE) 5,000 UNITS/ML 1ML VIAL SQ SCH ×2 (09:46→21:25)
[2023-03-23] MEDS ORDERED: ATORVASTATIN CA 20 MG TABLET (FP) PO SCH (10:00)
[2023-03-23] MEDS ORDERED: levETIRAcetam 500 MG TABLET (FP) PO SCH (11:40)
[2023-03-23] MEDS ORDERED: SODIUM CHLORIDE 0.45% 1,000 ML IV SCH (14:30)
[2023-03-23] MEDS ORDERED: LORATADINE 10 MG TABLET PO ONE (19:46)
[2023-03-23] MEDS ORDERED: ACETAMINOPHEN 1000 MG/100 ML BAG IVPB ONE (21:25)
[2023-03-24 09:16] LABS: HEMATOCRIT 43.3 % (35.4-49); HEMOGLOBIN 14.5 GM/dL (11.7-16.9); MCH 30.2 pg (25.7-33.7); MCHC 33.4 g/dl (32.0-35.9); MEAN CELL VOLUME 90.4 fl (80-96); MEAN PLT VOLUME 7.3 fl (7.5-11.1); PLATELET COUNT 121 10^3/uL (134-434); RBC 4.79 M/mm3 (4.00-5.60); RDW 15.1 % (11.9-15.9)
[2023-03-24 09:25] LABS: ALBUMIN 2.7 g/dl (3.4-5.0); ALK PHOS 55 U/L (45-117); ANION GAP 11 MMOL/L (8-16); BILIRUBIN,TOTAL 0.8 mg/dL (0.2-1); BLOOD UREA NITROGEN 15.3 mg/dL (7-18); CHLORIDE 109 mmol/L (98-107); CO2 20 mmol/L (21-32); CREATININE 1.1 mg/dL (0.55-1.3); GLUCOSE,RANDOM 74 mg/dL (74-106); MAGNESIUM 1.9 mg/dL (1.8-2.4); PHOSPHOROUS 2.3 mg/dL (2.5-4.9); POTASSIUM 3.9 mmol/L (3.5-5.1); SGOT/AST 187 U/L (15-37); SGPT/ALT 68 U/L (13-61); SODIUM 140 mmol/L (136-145); TOT PROT 5.4 g/dl (6.4-8.2)
[2023-03-24] MEDS: HEPARIN NA (PORCINE) 5,000 UNITS/ML 1ML VIAL SQ SCH ×2 (09:32→21:57)
[2023-03-24] MEDS: DONEPEZIL HCL 5 MG TABLET (FP) PO SCH ×2 (09:33)
[2023-03-24] MEDS ORDERED: CALCIUM GLUCONATE 10% - 1,000 MG/10 ML VIAL IVPB ONE (12:45)
[2023-03-24] MEDS ORDERED: NAPH,MB-DB/K PH,MBDB POWDER PACKET PO ONE (14:15)
[2023-03-24 15:19] LABS: CALCIUM 6.8 mg/dL (8.5-10.1)
[2023-03-24 17:47] LABS: EPI CELLS 6 /uL (0-25.1); HYALINE CASTS 1 /uL (0-3.1); URINE APPEARANCE CLEAR; URINE BACTERIA 9 /uL (0-1359); URINE BILIRUBIN NEGATIVE (NEGATIVE); URINE COLOR YELLOW; URINE GLUCOSE (UA) NEGATIVE (NEGATIVE); URINE KETONE NEGATIVE (NEGATIVE); URINE LEUK ESTERASE NEGATIVE (NEGATIVE); URINE NITRITE NEGATIVE (NEGATIVE); URINE PROTEIN TRACE (NEGATIVE); URINE RBC 55 /uL (0-23.9); URINE WBC 5 /uL (0-25.8)
[2023-03-24] MEDS: SODIUM CHLORIDE 1,000 ML IV SCH (21:59)
[2023-03-24] MEDS ORDERED: guaiFENesin 200 MG/10 ML 10 ML UNIT-DOSE CUPS PO ONE (23:30)
[2023-03-24] MEDS ORDERED: ACETAMINOPHEN 1000 MG/100 ML BAG IVPB ONE (23:30)
[2023-03-25 09:26] LABS: HEMATOCRIT 45.1 % (35.4-49); HEMOGLOBIN 14.9 GM/dL (11.7-16.9); MCH 29.9 pg (25.7-33.7); MEAN CELL VOLUME 90.7 fl (80-96); MEAN PLT VOLUME 8.8 fl (7.5-11.1); PLATELET COUNT 150 10^3/uL (134-434); RBC 4.97 M/mm3 (4.00-5.60); RDW 15.1 % (11.9-15.9); WHITE BLOOD COUNT 4.4 K/mm3 (4.0-10.0)
[2023-03-25] MEDS: HEPARIN NA (PORCINE) 5,000 UNITS/ML 1ML VIAL SQ SCH ×2 (09:29→22:42)
[2023-03-25] MEDS: DONEPEZIL HCL 5 MG TABLET (FP) PO SCH (09:29)
[2023-03-25 09:57] LABS: ALBUMIN 2.4 g/dl (3.4-5.0); CALCIUM 7.4 mg/dL (8.5-10.1)
[2023-03-25 09:58] LABS: BLOOD UREA NITROGEN 19.4 mg/dL (7-18); MAGNESIUM 1.8 mg/dL (1.8-2.4)
[2023-03-25 10:00] LABS: CREATININE 1.2 mg/dL (0.55-1.3); PHOSPHOROUS 3.5 mg/dL (2.5-4.9)
[2023-03-25 10:35] LABS: BILIRUBIN,TOTAL 0.6 mg/dL (0.2-1); TOT PROT 5.3 g/dl (6.4-8.2)
[2023-03-25] MEDS: THIAMINE HCL 200 MG/2 ML VIAL IVPB SCH (11:17)
[2023-03-25] MEDS: SODIUM CHLORIDE 1,000 ML IV SCH (22:48)
[2023-03-26 08:18] LABS: BASO % 0.5 % (0-2.0); EOS % 1.9 % (0-4.5); HEMATOCRIT 43.5 % (35.4-49); HEMOGLOBIN 14.5 GM/dL (11.7-16.9); LYMPH % 15.6 % (8-40); MCH 29.9 pg (25.7-33.7); MCHC 33.3 g/dl (32.0-35.9); MEAN CELL VOLUME 89.6 fl (80-96); MEAN PLT VOLUME 7.9 fl (7.5-11.1); MONO % 12.6 % (3.8-10.2); NEUT % 69.4 % (42.8-82.8); PLATELET COUNT 152 10^3/uL (134-434); RBC 4.86 M/mm3 (4.00-5.60); RDW 14.9 % (11.9-15.9); WHITE BLOOD COUNT 4.7 K/mm3 (4.0-10.0)
[2023-03-26 08:34] LABS: POTASSIUM 4.3 mmol/L (3.5-5.1)
[2023-03-26 08:37] LABS: CALCIUM 7.5 mg/dL (8.5-10.1)
[2023-03-26 08:38] LABS: ALBUMIN 2.4 g/dl (3.4-5.0); MAGNESIUM 1.6 mg/dL (1.8-2.4)
[2023-03-26 08:40] LABS: BLOOD UREA NITROGEN 18.7 mg/dL (7-18); CREATININE 1.1 mg/dL (0.55-1.3)
[2023-03-26 08:41] LABS: PHOSPHOROUS 2.8 mg/dL (2.5-4.9)
[2023-03-26 08:42] LABS: BILIRUBIN,TOTAL 0.5 mg/dL (0.2-1); TOT PROT 5.4 g/dl (6.4-8.2)
[2023-03-26] MEDS: DONEPEZIL HCL 5 MG TABLET (FP) PO SCH (10:25)
[2023-03-26] MEDS: HEPARIN NA (PORCINE) 5,000 UNITS/ML 1ML VIAL SQ SCH ×2 (10:25→21:36)
[2023-03-26] MEDS: THIAMINE HCL 200 MG/2 ML VIAL IVPB SCH (10:25)
[2023-03-26] MEDS: SODIUM CHLORIDE 1,000 ML IV SCH ×2 (10:34→23:28)
[2023-03-27 08:25] LABS: POTASSIUM 4.2 mmol/L (3.5-5.1)
[2023-03-27 08:33] LABS: ALBUMIN 2.6 g/dl (3.4-5.0)
[2023-03-27 08:34] LABS: BILIRUBIN,TOTAL 0.5 mg/dL (0.2-1); TOT PROT 5.6 g/dl (6.4-8.2)
[2023-03-27 08:35] LABS: CALCIUM 7.6 mg/dL (8.5-10.1)
[2023-03-27 08:36] LABS: BLOOD UREA NITROGEN 14.2 mg/dL (7-18); MAGNESIUM 1.8 mg/dL (1.8-2.4); PHOSPHOROUS 2.5 mg/dL (2.5-4.9)
[2023-03-27] MEDS: DONEPEZIL HCL 5 MG TABLET (FP) PO SCH (10:50)
[2023-03-27] MEDS: SODIUM CHLORIDE 1,000 ML IV SCH ×2 (10:51→16:00)
[2023-03-27] MEDS: THIAMINE HCL 200 MG/2 ML VIAL IVPB SCH (10:51)
[2023-03-27] MEDS: HEPARIN NA (PORCINE) 5,000 UNITS/ML 1ML VIAL SQ SCH ×2 (12:06→21:28)
[2023-03-28 07:58] LABS: POTASSIUM 4.4 mmol/L (3.5-5.1)
[2023-03-28 08:05] LABS: ALBUMIN 2.5 g/dl (3.4-5.0); BLOOD UREA NITROGEN 15.4 mg/dL (7-18); CALCIUM 7.8 mg/dL (8.5-10.1)
[2023-03-28 08:07] LABS: MAGNESIUM 1.8 mg/dL (1.8-2.4)
[2023-03-28 08:08] LABS: CREATININE 0.9 mg/dL (0.55-1.3); PHOSPHOROUS 2.6 mg/dL (2.5-4.9)
[2023-03-28 08:10] LABS: BILIRUBIN,TOTAL 0.5 mg/dL (0.2-1); TOT PROT 5.9 g/dl (6.4-8.2)
[2023-03-28 08:29] LABS: HEMATOCRIT 41.8 % (35.4-49); HEMOGLOBIN 14.1 GM/dL (11.7-16.9); MCH 29.9 pg (25.7-33.7); MCHC 33.7 g/dl (32.0-35.9); MEAN CELL VOLUME 88.8 fl (80-96); MEAN PLT VOLUME 8.1 fl (7.5-11.1); PLATELET COUNT 195 10^3/uL (134-434); RBC 4.71 M/mm3 (4.00-5.60); RDW 14.5 % (11.9-15.9)
[2023-03-28] MEDS: SODIUM CHLORIDE 1,000 ML IV SCH (08:41)
[2023-03-28] MEDS: THIAMINE HCL 200 MG/2 ML VIAL IVPB SCH (09:30)
[2023-03-28] MEDS: DONEPEZIL HCL 5 MG TABLET (FP) PO SCH (09:30)
[2023-03-28] MEDS: HEPARIN NA (PORCINE) 5,000 UNITS/ML 1ML VIAL SQ SCH ×2 (09:36→21:42)
[2023-03-29] MEDS ORDERED: THIAMINE HCL 200 MG/2 ML VIAL IVPB SCH (10:00)
[2023-03-29] MEDS ORDERED: HEPARIN NA (PORCINE) 5,000 UNITS/ML 1ML VIAL SQ SCH (10:00)
[2023-03-29] MEDS ORDERED: DONEPEZIL HCL 5 MG TABLET (FP) PO SCH (10:00)
[2023-03-29] MEDS ORDERED: THIAMINE HCL 100 MG TABLET (FP) PO SCH (10:00)
[2023-03-29 11:55] LABS: POTASSIUM 4.3 mmol/L (3.5-5.1)
[2023-03-29 11:57] LABS: ALBUMIN 2.7 g/dl (3.4-5.0); CALCIUM 7.8 mg/dL (8.5-10.1)
[2023-03-29 11:58] LABS: BLOOD UREA NITROGEN 15.7 mg/dL (7-18)
[2023-03-29 12:00] LABS: CREATININE 1.1 mg/dL (0.55-1.3)
[2023-03-29 12:02] LABS: BILIRUBIN,TOTAL 0.6 mg/dL (0.2-1)
[2023-03-29 13:50] VITALS: BP 131/78; PULSE 77; RESP 20; TEMP 98.5
== END 2023-03-29 14:57 | DRG 557 ==
LOC: JER 10:49 → JERBED 17:19 → J4W 19:37 → J8W 03-28 20:43
PROVIDERS: ADMIT Internal Medicine; ATTEND Nurse Practitioner Family
DX: M62.82 Rhabdomyolysis (principal); G93.41 Metabolic encephalopathy; U07.1 COVID-19; E87.0 Hyperosmolality and hypernatremia; N17.9 Acute kidney failure, unspecified; E86.0 Dehydration; G30.9 Alzheimer's disease, unspecified; F02.80 Dementia in other diseases classified elsewhere, unspecified severity, without behavioral disturbance, psychotic disturbance, mood disturbance, and anxiety; G40.909 Epilepsy, unspecified, not intractable, without status epilepticus; E83.51 Hypocalcemia; R94.5 Abnormal results of liver function studies; E78.5 Hyperlipidemia, unspecified; S80.02XA Contusion of left knee, initial encounter; S80.01XA Contusion of right knee, initial encounter; W18.39XA Other fall on same level, initial encounter; Y92.098 Other place in other non-institutional residence as the place of occurrence of the external cause
CPT/HCPCS: 36415; 70450-TC; 70551-TC; 71045-TC-FY; 72125-TC; 72141-TC; 72170-TC-FY; 73030-TC-RT-FY; 73070-TC-RT-FY; 73502-TC-RT-FY; 73562-TC-RT-FY; 74230-TC-FY; 80053; 80177; 80307; 81003; 82140; 82550; 82553; 82607; 82728; 82962; 82977; 83735; 84100; 84146; 84439; 84443; 84481; 84484; 85025; 85027; 85610; 86140; 86780; 87040; 87086; 87635; 92611-GN; 93005; 93010; 97116-GP; 97162-GP; 99291; J1644